=== PATIENT | male | born 1945 | race African-American/Black ===

== ENCOUNTER → 2020-09-10 | Outpatient (CLI) | payer MEDICARE ==
[~2020-09-10] MED LIST: ASPI-630 PO; HYDR-2765 PO
== END ==
LOC: LAB 09:13
PROVIDERS: ATTEND Specialist
DX: Z01.812 Encounter for preprocedural laboratory examination (principal); Z20.822 Contact with and (suspected) exposure to COVID-19
CPT/HCPCS: U0003

== ENCOUNTER 2020-09-11 08:41 | Day surgery (SDC) | payer MEDICARE ==
[~2020-09-11] VITALS: Ht 185.4 cm; Wt 77.0 kg
[~2020-09-11 08:41] MED LIST changes: +DEXAMETHASONE SOD PHOS 4 MG/ML VIAL ONE; -HYDR-2765 PO; +HYDROmorphone 2 MG/ML VIAL IVP PRN; +IV RINGERS,LACTATED 1000ML 1,000 ML IV SCH; +LIDOCAINE 2% PF 5 ML VIAL. ONE; +MORPHINE SULFATE 2 MG/ML VIAL. IVP PRN; +ONDANSETRON PF 4 MG/2 ML VIAL. ONE; +PROCHLORPERAZINE 10 MG/2 ML VIAL. IVP PRN; +PROPOFOL 10 MG/ML (20ML) VIAL. IV ONE; +ROCURONIUM 50 MG/5 ML VIAL. ONE; +SEVOFLURANE 61 TO 120 MINUTES. IH ONE; +ceFAZolin SODIUM IV Push 1 GM VIAL. IVP PRN; +fentaNYL PF VIAL 100 MCG/2 ML VIAL IVP PRN; +fentaNYL PF VIAL 100 MCG/2 ML VIAL ONE
[2020-09-11] MEDS ORDERED: BUPIVACAINE MPF 0.5% 30 ML VIAL. ONE (08:43)
[2020-09-11 09:11] VITALS: BP 185/96
--- NOTE | 2020-09-11 09:26 | PREOP HP ---
DATE OF SERVICE: 09/11/2020 HISTORY OF PRESENT ILLNESS: The patient is seen because of a painful mass in the right groin. It has been there for a few months and it is getting larger. PAST MEDICAL HISTORY: Shows normal childhood diseases and he does not take any medicine. 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 He has seen a urologist for this. ALLERGIES: HE IS ALLERGIC TO TETRACYCLINE. FAMILY HISTORY: Noncontributory. SOCIAL HISTORY: Shows that he does smoke marijuana, but occasionally and drinks only socially, but not enough to get inebriated. He does not use illicit drugs. REVIEW OF SYSTEMS: Negative except for the prostatism for which he has the catheter in place and the painful right groin mass. It appears to be getting larger with time. PHYSICAL EXAMINATION: GENERAL: Shows an alert male in no acute distress. HEAD, EYES, NOSE AND THROAT: Grossly normal. On the left side of the face at the level of the eye, but laterally, there is about a 3 cm mass, which appears to be a subcutaneous mass. It has been there for years and is not causing problems at this point, though it does hurt from time to time. There is no evidence of infection. LUNGS: Clear to auscultation. HEART: Had no murmurs, heaves, friction rubs or thrills, and had a rate of 69 beats per minute and it was regular. ABDOMEN: Grossly normal, but the pelvic did show a right groin mass, which was in the inguinal area that was not completely reducible. It was tender when I did try to reduce it, so I did not do it anymore. The left side was normal. This mass was on the right. He does have a catheter in place and otherwise normal male genitalia. The mass does increase with increased intra-abdominal pressure. EXTREMITIES: Grossly normal. IMPRESSION: 1. Prostatism. 2. Mass of left face. 3. Right inguinal hernia. RICARDO/KINZA/CHHAYA DR: Amisha TID: [id number]
[2020-09-11 09:30] LABS: BASO % 1 % (0-3); EOS # 0.2 x10^3/uL (0.0-0.7); EOS % 3 % (0-3); HEMATOCRIT 41.5 % (39.0-53.0); HEMOGLOBIN 13.6 g/dL (13.0-17.5); LYMPH # 1.3 x10^3/uL (1.0-4.8); LYMPH % 28 % (24-48); MEAN CORPUSCULAR HEMOGLOBIN 27 pg (25-35); MEAN CORPUSCULAR HGB CONC 33 g/dL (31-37); MEAN CORPUSCULAR VOLUME 82 fL (79-100); MONO # 0.5 x10^3/uL (0.0-1.1); MONO % 10 % (0-9); NEUT # 2.8 x10^3/uL (1.8-7.7); NEUT % 58 % (31-73); PLATELET COUNT 244 x10^3/uL (140-400); RED BLOOD COUNT 5.08 x10^6/uL (4.30-5.70); RED CELL DISTRIBUTION WIDTH 14.5 % (11.5-14.5); WHITE BLOOD COUNT 4.8 x10^3/uL (4.0-11.0)
[2020-09-11 09:38] LABS: CALCIUM 8.6 mg/dL (8.5-10.1); CREATININE 1.5 mg/dL (0.7-1.3); GFR 55.2; POTASSIUM 4.2 mmol/L (3.5-5.1)
[2020-09-11 09:39] LABS: PROTHROMBIN TIME PATIENT 12.5 SEC (11.7-14.0)
[2020-09-11] MEDS ORDERED: BUPIVACAINE-EPI 0.5% 30 ML VIAL KIT. ONE (09:40)
[2020-09-11 09:43] LABS: ALBUMIN 3.6 g/dL (3.4-5.0); ALBUMIN/GLOBULIN RATIO 0.9 (1.0-1.7); TOTAL BILIRUBIN 0.2 mg/dL (0.2-1.0); TOTAL PROTEIN 7.8 g/dL (6.4-8.2)
[2020-09-11] MEDS ORDERED: PHENYLEPHRINE in 0.9% NACL PF 1 MG/10 ML SYRINGE. IV ONE (10:57)
[2020-09-11] MEDS ORDERED: GLYCOPYRROLATE 1 MG/5 ML VIAL. ONE (11:26)
[2020-09-11] MEDS ORDERED: NEOSTIGMINE METHYLSULFATE 5 MG/5 ML SYRINGE. ONE (11:26)
[2020-09-11] MEDS ORDERED: BUPIVACAINE-EPI 0.5%-1:200000 MPF 30 ML VIAL. ONE ×2 (11:46→11:49)
--- NOTE | 2020-09-11 12:39 | PDOC ---
SURGICAL PROGRESS NOTE DATE: 09/11/20 TIME: 12:38 No change in dictated H%P Vital Signs Vital Signs Date Time Temp Pulse Resp B/P (MAP) Pulse Ox O2 Delivery O2 Flow Rate FiO2 09/11/20 09:15 97.9 80 20 185/96 96 Room Air 97.9 Labs Laboratory Tests Test 09/11/20 09:18 White Blood Count 4.8 x10^3/uL (4.0-11.0) Red Blood Count 5.08 x10^6/uL (4.30-5.70) Hemoglobin 13.6 g/dL (13.0-17.5) Hematocrit 41.5 % (39.0-53.0) Mean Corpuscular Volume 82 fL (79-100) Mean Corpuscular Hemoglobin 27 pg (25-35) Mean Corpuscular Hemoglobin Concent 33 g/dL (31-37) Red Cell Distribution Width 14.5 % (11.5-14.5) Platelet Count 244 x10^3/uL (140-400) Neutrophils (%) (Auto) 58 % (31-73) Lymphocytes (%) (Auto) 28 % (24-48) Monocytes (%) (Auto) 10 % (0-9) Eosinophils (%) (Auto) 3 % (0-3) Basophils (%) (Auto) 1 % (0-3) Neutrophils # (Auto) 2.8 x10^3/uL (1.8-7.7) Lymphocytes # (Auto) 1.3 x10^3/uL (1.0-4.8) Monocytes # (Auto) 0.5 x10^3/uL (0.0-1.1) Eosinophils # (Auto) 0.2 x10^3/uL (0.0-0.7) Basophils # (Auto) 0.0 x10^3/uL (0.0-0.2) Prothrombin Time 12.5 SEC (11.7-14.0) Prothromb Time International Ratio 0.9 (0.8-1.1) Activated Partial Thromboplast Time 26 SEC (24-38) Sodium Level 143 mmol/L (136-145) Potassium Level 4.2 mmol/L (3.5-5.1) Chloride Level 111 mmol/L (98-107) Carbon Dioxide Level 25 mmol/L (21-32) Anion Gap 7 (6-14) Blood Urea Nitrogen 18 mg/dL (8-26) Creatinine 1.5 mg/dL (0.7-1.3) Estimated GFR (Cockcroft-Gault) 55.2 BUN/Creatinine Ratio 12 (6-20) Glucose Level 90 mg/dL (70-99) Calcium Level 8.6 mg/dL (8.5-10.1) Total Bilirubin 0.2 mg/dL (0.2-1.0) Aspartate Amino Transf (AST/SGOT) 15 U/L (15-37) Alanine Aminotransferase (ALT/SGPT) 17 U/L (16-63) Alkaline Phosphatase 69 U/L (46-116) Total Protein 7.8 g/dL (6.4-8.2) Albumin 3.6 g/dL (3.4-5.0) Albumin/Globulin Ratio 0.9 (1.0-1.7) Laboratory Tests Test 09/11/20 09:18 White Blood Count 4.8 x10^3/uL (4.0-11.0) Red Blood Count 5.08 x10^6/uL (4.30-5.70) Hemoglobin 13.6 g/dL (13.0-17.5) Hematocrit 41.5 % (39.0-53.0) Mean Corpuscular Volume 82 fL (79-100) Mean Corpuscular Hemoglobin 27 pg (25-35) Mean Corpuscular Hemoglobin Concent 33 g/dL (31-37) Red Cell Distribution Width 14.5 % (11.5-14.5) Platelet Count 244 x10^3/uL (140-400) Neutrophils (%) (Auto) 58 % (31-73) Lymphocytes (%) (Auto) 28 % (24-48) Monocytes (%) (Auto) 10 % (0-9) Eosinophils (%) (Auto) 3 % (0-3) Basophils (%) (Auto) 1 % (0-3) Neutrophils # (Auto) 2.8 x10^3/uL (1.8-7.7) Lymphocytes # (Auto) 1.3 x10^3/uL (1.0-4.8) Monocytes # (Auto) 0.5 x10^3/uL (0.0-1.1) Eosinophils # (Auto) 0.2 x10^3/uL (0.0-0.7) Basophils # (Auto) 0.0 x10^3/uL (0.0-0.2) Prothrombin Time 12.5 SEC (11.7-14.0) Prothromb Time International Ratio 0.9 (0.8-1.1) Activated Partial Thromboplast Time 26 SEC (24-38) Sodium Level 143 mmol/L (136-145) Potassium Level 4.2 mmol/L (3.5-5.1) Chloride Level 111 mmol/L (98-107) Carbon Dioxide Level 25 mmol/L (21-32) Anion Gap 7 (6-14) Blood Urea Nitrogen 18 mg/dL (8-26) Creatinine 1.5 mg/dL (0.7-1.3) Estimated GFR (Cockcroft-Gault) 55.2 BUN/Creatinine Ratio 12 (6-20) Glucose Level 90 mg/dL (70-99) Calcium Level 8.6 mg/dL (8.5-10.1) Total Bilirubin 0.2 mg/dL (0.2-1.0) Aspartate Amino Transf (AST/SGOT) 15 U/L (15-37) Alanine Aminotransferase (ALT/SGPT) 17 U/L (16-63) Alkaline Phosphatase 69 U/L (46-116) Total Protein 7.8 g/dL (6.4-8.2) Albumin 3.6 g/dL (3.4-5.0) Albumin/Globulin Ratio 0.9 (1.0-1.7) Justicifation of Admission Dx: Justifications for Admission: Justification of Admission Dx: Yes JAC KAUFMAN MD Sep 11, 2020 12:39
--- NOTE | 2020-09-11 12:43 | PDOC ---
SURGICAL PROGRESS NOTE DATE: 09/11/20 TIME: 12:39 Op Note: Surgeon........................................Hira Pre op diag....................................incarcerated right inguinal hernia Post op diag..................................Incarcerated right direct ingunal hernia Anaesthesia...................................general Procerdure.....................................repair incarcerated right inguinal hernia Drains...........................................none Blood loss......................................15cc Fluids...........................................see anesthesia sheet Condition......................................satisfactory Vital Signs Vital Signs Date Time Temp Pulse Resp B/P (MAP) Pulse Ox O2 Delivery O2 Flow Rate FiO2 09/11/20 09:15 97.9 80 20 185/96 96 Room Air 97.9 Labs Laboratory Tests Test 09/11/20 09:18 White Blood Count 4.8 x10^3/uL (4.0-11.0) Red Blood Count 5.08 x10^6/uL (4.30-5.70) Hemoglobin 13.6 g/dL (13.0-17.5) Hematocrit 41.5 % (39.0-53.0) Mean Corpuscular Volume 82 fL (79-100) Mean Corpuscular Hemoglobin 27 pg (25-35) Mean Corpuscular Hemoglobin Concent 33 g/dL (31-37) Red Cell Distribution Width 14.5 % (11.5-14.5) Platelet Count 244 x10^3/uL (140-400) Neutrophils (%) (Auto) 58 % (31-73) Lymphocytes (%) (Auto) 28 % (24-48) Monocytes (%) (Auto) 10 % (0-9) Eosinophils (%) (Auto) 3 % (0-3) Basophils (%) (Auto) 1 % (0-3) Neutrophils # (Auto) 2.8 x10^3/uL (1.8-7.7) Lymphocytes # (Auto) 1.3 x10^3/uL (1.0-4.8) Monocytes # (Auto) 0.5 x10^3/uL (0.0-1.1) Eosinophils # (Auto) 0.2 x10^3/uL (0.0-0.7) Basophils # (Auto) 0.0 x10^3/uL (0.0-0.2) Prothrombin Time 12.5 SEC (11.7-14.0) Prothromb Time International Ratio 0.9 (0.8-1.1) Activated Partial Thromboplast Time 26 SEC (24-38) Sodium Level 143 mmol/L (136-145) Potassium Level 4.2 mmol/L (3.5-5.1) Chloride Level 111 mmol/L (98-107) Carbon Dioxide Level 25 mmol/L (21-32) Anion Gap 7 (6-14) Blood Urea Nitrogen 18 mg/dL (8-26) Creatinine 1.5 mg/dL (0.7-1.3) Estimated GFR (Cockcroft-Gault) 55.2 BUN/Creatinine Ratio 12 (6-20) Glucose Level 90 mg/dL (70-99) Calcium Level 8.6 mg/dL (8.5-10.1) Total Bilirubin 0.2 mg/dL (0.2-1.0) Aspartate Amino Transf (AST/SGOT) 15 U/L (15-37) Alanine Aminotransferase (ALT/SGPT) 17 U/L (16-63) Alkaline Phosphatase 69 U/L (46-116) Total Protein 7.8 g/dL (6.4-8.2) Albumin 3.6 g/dL (3.4-5.0) Albumin/Globulin Ratio 0.9 (1.0-1.7) Laboratory Tests Test 09/11/20 09:18 White Blood Count 4.8 x10^3/uL (4.0-11.0) Red Blood Count 5.08 x10^6/uL (4.30-5.70) Hemoglobin 13.6 g/dL (13.0-17.5) Hematocrit 41.5 % (39.0-53.0) Mean Corpuscular Volume 82 fL (79-100) Mean Corpuscular Hemoglobin 27 pg (25-35) Mean Corpuscular Hemoglobin Concent 33 g/dL (31-37) Red Cell Distribution Width 14.5 % (11.5-14.5) Platelet Count 244 x10^3/uL (140-400) Neutrophils (%) (Auto) 58 % (31-73) Lymphocytes (%) (Auto) 28 % (24-48) Monocytes (%) (Auto) 10 % (0-9) Eosinophils (%) (Auto) 3 % (0-3) Basophils (%) (Auto) 1 % (0-3) Neutrophils # (Auto) 2.8 x10^3/uL (1.8-7.7) Lymphocytes # (Auto) 1.3 x10^3/uL (1.0-4.8) Monocytes # (Auto) 0.5 x10^3/uL (0.0-1.1) Eosinophils # (Auto) 0.2 x10^3/uL (0.0-0.7) Basophils # (Auto) 0.0 x10^3/uL (0.0-0.2) Prothrombin Time 12.5 SEC (11.7-14.0) Prothromb Time International Ratio 0.9 (0.8-1.1) Activated Partial Thromboplast Time 26 SEC (24-38) Sodium Level 143 mmol/L (136-145) Potassium Level 4.2 mmol/L (3.5-5.1) Chloride Level 111 mmol/L (98-107) Carbon Dioxide Level 25 mmol/L (21-32) Anion Gap 7 (6-14) Blood Urea Nitrogen 18 mg/dL (8-26) Creatinine 1.5 mg/dL (0.7-1.3) Estimated GFR (Cockcroft-Gault) 55.2 BUN/Creatinine Ratio 12 (6-20) Glucose Level 90 mg/dL (70-99) Calcium Level 8.6 mg/dL (8.5-10.1) Total Bilirubin 0.2 mg/dL (0.2-1.0) Aspartate Amino Transf (AST/SGOT) 15 U/L (15-37) Alanine Aminotransferase (ALT/SGPT) 17 U/L (16-63) Alkaline Phosphatase 69 U/L (46-116) Total Protein 7.8 g/dL (6.4-8.2) Albumin 3.6 g/dL (3.4-5.0) Albumin/Globulin Ratio 0.9 (1.0-1.7) Justicifation of Admission Dx: Justifications for Admission: Justification of Admission Dx: Yes JAC KAUFMAN MD Sep 11, 2020 12:43
--- NOTE | 2020-09-11 12:50 | DISCH ---
DISCHARGE INSTRUCTIONS Condition on Discharge Condition on Discharge: Stable Activity After Discharge Activity Instructions for Disc: Avoid exertion Diet after Discharge Diet after Discharge: Clear Liquid Wound Incision Care Other wound/incision instructi: do not change dressing, may shower Follow-Up Follow up with: call and make appt to see me in 2 weeks JAC KAUFMAN MD Sep 11, 2020 12:50
[2020-09-11] MEDS ORDERED: ceFAZolin SODIUM IV Push 1 GM VIAL. IVP ONE (13:00)
[2020-09-11] MEDS ORDERED: HYDROcodone/APAP 7.5/325MG 1 TAB TABLET PO ONE (13:00)
[2020-09-11] MEDS ORDERED: hydrALAZINE 20 MG/ML VIAL. ONE (13:27)
[2020-09-11] MEDS ORDERED: hydrALAZINE 20 MG/ML VIAL. IVP ONE (13:30)
[2020-09-11 13:48] VITALS: BP 139/82
[2020-09-11] MEDS ORDERED: HYDR-2765 PO (14:21)
--- NOTE | 2020-09-12 01:32 | OP ---
DATE OF SURGERY: 09/11/2020 PREOPERATIVE DIAGNOSIS: Incarcerated right inguinal hernia. POSTOPERATIVE DIAGNOSIS: Incarcerated direct inguinal hernia. ANESTHESIA: General. PROCEDURE: Repair incarcerated inguinal hernia. TECHNIQUE: Under general anesthesia, the patient was properly prepped and draped in routine fashion. An incision was made following the skin lines in the right inguinal area. This was done with a #15 blade and carried through the skin. Into the subcutaneous, we used cautery to go down to the fascia and divided the various vessels that were there making certain not to have any bleeding. We then identified the external oblique aponeurosis, made a small corina ending in the direction of the fibers and then opened it up using Metzenbaum scissors spreading underneath so as not to injure the nerve. We passed this down to the external inguinal ring and opened the external inguinal ring. We then identified a bulge and this was medial to the cord, could not be reduced, but with pressures, slowly reduced it. Obviously, . The cord structures were encircled at the pubic tubercle, pulled up and the cremasteric fibers divided with cautery. We then felt that the sac had nothing to do with the inguinal cord and was medial to it and was in fact a direct hernia. We then used cautery finger dissection to push away all the tissues away from the sac and then slowly, we were able to reduce it. We then placed an extra-large PerFix plug into this area and sutured it to the transversalis fascia, pubic tubercle and also the shelving edge of the inguinal ligament and did this with 2-0 Prolene. Now, the plug in place with no tension and you could press on the abdomen and it did not bulge out. We then placed a patch over this area starting at the pubic tubercle with #0 Prolene suture and ran it laterally, taken to shelving edge of Poupart's ligament, made a cut in it so that we could go around the cord structures and not strangulate the cord structures. We then sutured 2-0 Prolene around the lateral portion of the slit that we made in this so that the cord structures could go there. Having done this, we made certain that it was not tight, the cord structures lay flat and normal and as such, we completed the running suture well up passing the internal inguinal ring. Medially, we did a similar procedure, taking transversalis fascia and running it around medially from the pubic tubercle to back around above the cord structures and back to the inguinal ligament. These were tied separately and the procedure was basically finished. There was no hernia there. A good patch was then placed, PerFix plug lay without tension deep and all was well. We then inspected the area. There was no further bleeding or any abnormalities. We did inject with 0.5% Marcaine and epinephrine. We then pulled down on the cord to make certain the testicles are in normal position and then approximated the subcutaneous after irrigating it with saline with interrupted 4-0 Vicryl. The skin was closed using a subcuticular 5-0 Vicryl. Sterile Tegaderm dressing was applied and the procedure was terminated. The blood loss was about 15 mL. Fluids given can be obtained from the anesthesia sheet. No drains were used and the condition of the patient was satisfactory as he has returned to the recovery room. NICHOLE/AARON DR: Amisha TID: [id number]
== END 2020-09-11 14:43 | disposition home or self-care (01) ==
LOC: SURG 08:41 → EDUNIT# 10:00 → SURG 14:43
PROVIDERS: ATTEND Specialist
DX: K40.30 Unilateral inguinal hernia, with obstruction, without gangrene, not specified as recurrent (principal); N40.0 Benign prostatic hyperplasia without lower urinary tract symptoms; Z79.899 Other long term (current) drug therapy; Z98.890 Other specified postprocedural states; Z79.82 Long term (current) use of aspirin; Z87.891 Personal history of nicotine dependence; Z88.1 Allergy status to other antibiotic agents; Z72.89 Other problems related to lifestyle
CPT/HCPCS: 36415; 49507; 80053; 85025; 85610; 85730; A4930; A6258; A6402; C1781; J0360; J0690; J1100; J2370; J2405; J2704; J2710; J3010; J3490